=== PATIENT | female | born 2000 | race Hispanic/Latino ===

== ENCOUNTER 2020-12-08 02:18 | Emergency (ER) | payer MEDICAID, OTHER ==
[2020-12-08] MEDS ORDERED: LIDOCAINE HCL 2% VISCOUS 15 ML UDCUP ONE (02:42)
[2020-12-08] MEDS ORDERED: MAG/ALUM/SIMETH 30 ML UDCUP ONE (02:42)
[2020-12-08] MEDS ORDERED: IBUPROFEN 400 MG TABLET ONE (02:43)
[2020-12-08] MEDS ORDERED: CLINDAMYCIN 150 MG CAP ONE (02:43)
[2020-12-08] MEDS ORDERED: DEXAMETHASONE 4 MG TAB ONE (02:44)
== END 2020-12-08 02:50 | disposition home or self-care (01) ==
LOC: EDH 02:18
DX: J03.90 Acute tonsillitis, unspecified (principal); Z72.0 Tobacco use
CPT/HCPCS: 99284; J8540